=== PATIENT | male | born 1995 | race Caucasian/White ===

== ENCOUNTER 2020-07-16 16:25 | Emergency (ER) | payer OTHER, SELFPAY ==
[2020-07-16 16:26] VITALS: BP 124/60; PULSE 77; RESP 20; TEMP 36.1; O2SAT 99
--- NOTE | 2020-07-16 17:19 | ED.UPPEXIN ---
HPI - Extremity Injury (Upper) General Chief Complaint: Extremity Injury, Upper <Ned Jin PA-C - Last Filed: 07/16/20 17:58> Stated Complaint: left thumb lac from glass <Ned Jin PA-C - Last Filed: 07/16/20 17:58> Time Seen by Provider: 07/16/20 16:29 <Ned Jin PA-C - Last Filed: 07/16/20 17:58> Source: patient and family <Ned Jin PA-C - Last Filed: 07/16/20 17:58> Mode of arrival: ambulatory <Ned Jin PA-C - Last Filed: 07/16/20 17:58> Limitations: no limitations <Ned Jin PA-C - Last Filed: 07/16/20 17:58> History of Present Illness HPI narrative: Patient is a 24-year-old male who presents with thumb laceration that occurred just prior to arrival while cleaning dishes in the sink sustaining laceration dorsal surface proximal phalanx left thumb notes moderate aching pain worse with activity and movement notes tetanus to be up-to-date presents in no distress <Ned Jin PA-C - Last Filed: 07/16/20 17:58> Related Data Allergies/Adverse Reactions: Allergies Allergy/AdvReac Type Severity Reaction Status Date / Time No Known Allergies Allergy Unknown Verified 07/16/20 16:30 <Ned Jin PA-C - Last Filed: 07/16/20 17:58> Review of Systems Review of Systems: All systems reviewed & are unremarkable except as noted in HPI and below <Ned Jin PA-C - Last Filed: 07/16/20 17:58> PMFSH Social History Social History: Social History (Updated 07/16/20 @ 17:20 by Ned Jin PA-C) Smoking status: Never smoker Gender identity (if verbalized by the patient): Male <EVELYN Tavarez Last Filed: 07/16/20 17:58> Exam Narrative: Exam Narrative: GENERAL: Well-appearing, well-nourished, and in no acute distress. HEAD: Normocephalic, atraumatic. EYES: PERRLA and EOMI. ENT: Nares clear, no rhinorrhea or epistaxis. Mucous membranes moist. EXTREMITIES: Normal range of motion. No edema. SKIN: Warm, dry, no rash. 1 cm laceration dorsal surface proximal phalanx left thumb NEURO: No focal deficits. Alert and oriented x3. Neurovascularly intact. Motor and sensory intact PSYCH: Normal mood and affect. <EVELYN Tavarez Last Filed: 07/16/20 17:58> Course Course Emergency Course: Patient's wound was closed in the emergency department dressed and ready for discharge patient provided with follow-up and given reasons to return <Ned Jin PA-C - Last Filed: 07/16/20 17:58> Vital Signs Vital signs: Vital Signs Temperature 97 F L 07/16/20 16:26 Pulse Rate 77 07/16/20 16:26 Respiratory Rate 20 07/16/20 16:26 Blood Pressure 124/60 07/16/20 16:26 Pulse Oximetry 99 07/16/20 16:26 Temperature 97 F L 07/16/20 16:26 Pulse Rate 77 07/16/20 16:26 Respiratory Rate 20 07/16/20 16:26 Blood Pressure 124/60 07/16/20 16:26 Pulse Oximetry 99 07/16/20 16:26 <EVELYN Tavarez Last Filed: 07/16/20 17:58> Vital Signs Temperature 97 F L 07/16/20 16:26 Pulse Rate 77 07/16/20 16:26 Respiratory Rate 20 07/16/20 16:26 Blood Pressure 124/60 07/16/20 16:26 Pulse Oximetry 99 07/16/20 16:26 Temperature 97 F L 07/16/20 16:26 Pulse Rate 77 07/16/20 16:26 Respiratory Rate 20 07/16/20 16:26 Blood Pressure 124/60 07/16/20 16:26 Pulse Oximetry 99 07/16/20 16:26 <Pau Cortez MD - Last Filed: 07/16/20 18:20> Procedures Laceration Laceration 1: Date: 07/16/20 <EVELYN Tavarez Last Filed: 07/16/20 17:58> Time: 17:57 <EVELYN Tavarez Last Filed: 07/16/20 17:58> Site: upper extremity <EVELYN Tavarez Last Filed: 07/16/20 17:58> Side (If applicable): left <Ned Jin PA-C - Last Filed: 07/16/20 17:58> Description: linear <Ned Jin PA-C - Last Filed: 07/16/20 17:58> Depth: simple, sing
== END 2020-07-16 18:23 | disposition home or self-care (01) ==
PROVIDERS: Emergency Provider General Practice; PCP Family Medicine
DX: S61.012A Laceration without foreign body of left thumb without damage to nail, initial encounter (principal); W26.8XXA Contact with other sharp object(s), not elsewhere classified, initial encounter; Y93.G1 Activity, food preparation and clean up
CPT/HCPCS: 12002; 99282